=== PATIENT | male | born 1980 | race Caucasian/White ===

== ENCOUNTER 2018-06-11 04:57 | Emergency (ER) | payer SELFPAY ==
[~2018-06-11] VITALS: Ht 170.2 cm; Wt 77.0 kg
[2018-06-11] MEDS ORDERED: ACETAMINOPHEN 325MG TABLET PO ONE ×2 (05:30→10:45)
[2018-06-11 05:55] LABS: CHLORIDE 106 mEq/L (98-107)
[2018-06-11 05:58] LABS: BASOPHILS % 0.7 % (0.0-2.0); EOSINOPHILS % 0.7 % (0.0-5.0); ETHANOL BLOOD < 10 mg/dL; HEMATOCRIT. 44.1 % (42.0-52.0); HEMOGLOBIN. 15.3 g/dL (14.0-18.0); LYMPHOCYTES % 15.7 % (20.0-50.0); MEAN CORPUSCULAR VOLUME 89.5 fL (80.0-94.0); MEAN PLATELET VOLUME 7.9 fl (7.4-10.4); MONOCYTES % 7.7 % (2.0-8.0); NEUTROPHILS % 75.2 % (40.0-76.0); PLATELET 262 x1000/uL (130-400); RED BLOOD CELL COUNT 4.93 mill/uL (4.7-6.1); RED CELL DISTRIBUTION WIDTH 12.6 % (11.6-14.6)
[2018-06-11] MEDS ORDERED: LORAZEPAM 2MG/ML CPJ IM ONE ×2 (06:15→10:30)
[2018-06-11] MEDS ORDERED: KETOROLAC 60MG/2ML VIAL IM ONE (10:30)
[2018-06-11 12:06] LABS: CLARITY URINE CLEAR (CLEAR); COLOR URINE DARK YELLOW (YELLOW); KETONES URINE TRACE (NEGATIVE); LEUKOCYTE ESTERASE URINE NEGATIVE (NEGATIVE); NITRITE URINE NEGATIVE (NEGATIVE); OCCULT BLOOD URINE NEGATIVE (NEGATIVE); PH URINE 5.5 (4.5-8.0); PROTEIN URINE TRACE (NEGATIVE); UROBILINOGEN URINE 0.2 E.U./dL (0.2-1.0)
[2018-06-11 12:24] LABS: OPIATES URINE SCREEN NEGATIVE (NEGATIVE)
[2018-06-11 12:25] LABS: METHADONE URINE SCREEN NEGATIVE (NEGATIVE)
[2018-06-11 12:26] LABS: *BENZODIAZEPINES SCREEN URINE NEGATIVE (NEGATIVE)
[2018-06-11 12:28] LABS: *BARBITURATES SCREEN URINE NEGATIVE (NEGATIVE); CANNABINOID URINE SCREEN NEGATIVE (NEGATIVE)
[2018-06-11 12:29] LABS: PHENCYCLIDINE URINE SCREEN NEGATIVE (NEGATIVE)
[2018-06-11 12:31] LABS: *AMPHETAMINES SCREEN URINE PRESUMTIVE POSITIVE (NEGATIVE)
[2018-06-11 12:32] LABS: *COCAINE SCREEN URINE NEGATIVE (NEGATIVE)
[2018-06-11] MEDS ORDERED: HALOPERIDOL LACTATE 5MG/ML VIAL IM ONE ×2 (13:13→20:00)
[2018-06-11 19:22] VITALS: BP 126/86
== END 2018-06-11 21:44 | disposition home or self-care (01) ==
LOC: ER 04:57
DX: S01.511A Laceration without foreign body of lip, initial encounter (principal); F15.129 Other stimulant abuse with intoxication, unspecified; Z78.1 Physical restraint status; Y04.0XXA Assault by unarmed brawl or fight, initial encounter; Y93.89 Activity, other specified; Y92.488 Other paved roadways as the place of occurrence of the external cause
CPT/HCPCS: 36415; 70450; 72125; 80048; 80305; 80307; 80320; 80329; 81003; 85025; 96372; 99284; J2060; Z7610; J1630; J1885; G0480

== ENCOUNTER 2023-09-03 14:40 | Emergency (ER) | payer SELFPAY ==
[~2023-09-03] VITALS: Ht 180.3 cm; Wt 87.0 kg
[2023-09-03 14:47] VITALS: O2SAT 98
[2023-09-03 15:58] LABS: BASOPHILS % 0.6 % (0.0-2.0); EOSINOPHILS % 0.2 % (0.0-5.0); HEMATOCRIT. 47.9 % (42.0-52.0); HEMOGLOBIN. 16.1 g/dL (14.0-18.0); LYMPHOCYTES % 9.8 % (20.0-50.0); MEAN CORPUSCULAR HEMOGLOBIN 29.5 pg (28.0-32.0); MEAN CORPUSCULAR HGB CONC 33.7 g/dL (31.0-37.0); MEAN CORPUSCULAR VOLUME 87.6 fL (80.0-94.0); MEAN PLATELET VOLUME 7.4 fl (7.4-10.4); MONOCYTES % 8.2 % (2.0-8.0); NEUTROPHILS % 81.2 % (40.0-76.0); PLATELET 362 x1000/uL (130-400); RED BLOOD CELL COUNT 5.46 mill/uL (4.7-6.1); RED CELL DISTRIBUTION WIDTH 14.7 % (11.6-14.6); WHITE BLOOD COUNT 13.2 x1000/uL (4.5-11.0)
[2023-09-03 16:07] LABS: CHLORIDE 106 mEq/L (98-107); POTASSIUM 3.7 mEq/L (3.5-5.1); SODIUM 140 mEq/L (136-145)
[2023-09-03 16:08] LABS: CARBON DIOXIDE 24 mEq/L (21-32)
[2023-09-03 16:09] LABS: CALCIUM 10.2 mg/dL (8.7-10.4)
[2023-09-03 16:13] LABS: CREATININE 0.8 mg/dL (0.6-1.3); GLUCOSE 100 mg/dL (70-105)
[2023-09-03 16:14] LABS: TROPONIN I HIGH SENSITIVITY 8 ng/L (3.0-53); UREA NITROGEN BLOOD 13 mg/dL (9-23)
[2023-09-03] MEDS: LORAZEPAM 2MG/ML INJ IV ONE (16:14)
[2023-09-03 16:15] LABS: ALANINE AMINOTRANSFERASE 23 IU/L (10-49); ALBUMIN 5.2 g/dL (3.2-4.8); ASPARTATE AMINOTRANSFERASE 23 IU/L (<34)
[2023-09-03 16:16] LABS: BILIRUBIN DIRECT 0.3 mg/dL (<=3.0); BILIRUBIN TOTAL 1.2 mg/dL (0.1-1.0); ETHANOL BLOOD < 10 mg/dL (<10); PROTEIN TOTAL 8.2 g/dL (6.0-8.3)
[2023-09-03 16:45] LABS: PROTHROMBIN TIME 11.6 sec (9.6-11.0)
[2023-09-03] MEDS: LORAZEPAM 2MG/ML INJ IV NR (17:00)
[2023-09-03 17:32] LABS: CREATINE KINASE 305 IU/L (46-171)
[2023-09-03] MEDS: SODIUM CHLORIDE 0.9% IV ONE (17:43)
[2023-09-03 17:56] VITALS: BP 157/104; PULSE 140; RESP 20; TEMP 98.4
[2023-09-03 18:15] LABS: TROPONIN I HIGH SENSITIVITY 8 ng/L (3.0-53)
== END 2023-09-03 20:08 | disposition left against medical advice (07) ==
LOC: ER 14:40 → EDBEDREQ 19:08 → EDBEDREQTM 19:08 → ER 20:08
DX: R41.82 Altered mental status, unspecified (principal); R00.0 Tachycardia, unspecified
CPT/HCPCS: 80076; 80048; 80320; 82550; 83690; 85025; 85610; 84484; 36415; 71045; 70450; 93005; 96361; 96374; 96376; 99291; J2060; J7030; Z7610; G0480